=== PATIENT | female | born 2000 | race Two or more races ===

== ENCOUNTER 2024-11-11 11:02 | Emergency (ER) | payer OTHER ==
[~2024-11-11] VITALS: Ht 157.5 cm; Wt 60.8 kg
[2024-11-11 13:21] LABS: HEMATOCRIT 30.1 % (36.0-45.00); HEMOGLOBIN 10.7 g/dL (12.0-15.00); MEAN CELL VOLUME 88.5 fL (80.00-100.00); MEAN CORPUSCULAR HEMOGLOBIN 31.6 pg (27.00-32.0); MEAN CORPUSCULAR HGB CONC 35.7 g/dl (32.0-36.0); PLATELET COUNT 232 K/uL (150-450); RED CELL DISTRIBUTION WIDTH 12.6 % (11.5-14.5)
[2024-11-11 13:47] LABS: URINE APPEARANCE Turbid; URINE BILIRRUBIN Negative (NEGATIVE); URINE BLOOD Negative; URINE COLOR Yellow; URINE GLUCOSE Negative (NEGATIVE); URINE KETONE Negative (NEGATIVE); URINE LEUKOCYTE Negative; URINE NITRATE Negative; URINE PROTEIN Negative (NEGATIVE); URINE UROBILINOGEN 0.2 E.U./dl
[2024-11-11 13:49] LABS: URINE BACTERIA 493.2 uL (0.0-1933); URINE EPITHELIAL CELLS 16.1 uL (0.0-38.8); URINE RBC 4.7 uL (0.0-20.8); URINE WBC 25.7 uL (0.0-23.2)
== END 2024-11-11 16:38 | disposition home or self-care (01) ==
LOC: ER 11:04
PROVIDERS: General Practice
DX: O20.8 Other hemorrhage in early pregnancy (principal); Z3A.09 9 weeks gestation of pregnancy; N93.9 Abnormal uterine and vaginal bleeding, unspecified

== ENCOUNTER 2024-12-02 10:24 | Outpatient (CLI) | payer OTHER | END 2024-12-02 10:26 | disposition home or self-care (01) | LOC: PRENATAL 10:24 | PROVIDERS: ATTEND Obstetrics & Gynecology Maternal & Fetal Medicine | DX: O36.80X0 Pregnancy with inconclusive fetal viability, not applicable or unspecified (principal); Z36.82 Encounter for antenatal screening for nuchal translucency; Z14.8 Genetic carrier of other disease; Z3A.12 12 weeks gestation of pregnancy ==

== ENCOUNTER 2024-12-05 19:01 | Emergency (ER) | payer OTHER ==
[~2024-12-05] VITALS: Ht 154.9 cm; Wt 59.0 kg
== END 2024-12-05 20:21 | disposition home or self-care (01) ==
LOC: ER 19:03
DX: R21 Rash and other nonspecific skin eruption (principal); Z91.038 Other insect allergy status

== ENCOUNTER → 2025-01-25 15:36 | Outpatient (CLI) | payer OTHER | END | disposition home or self-care (01) | LOC: PRENATAL 15:36 | PROVIDERS: ATTEND Obstetrics & Gynecology Maternal & Fetal Medicine | DX: O44.00 Complete placenta previa NOS or without hemorrhage, unspecified trimester (principal); Z3A.20 20 weeks gestation of pregnancy ==

== ENCOUNTER → 2025-03-25 13:26 | Outpatient (CLI) | payer OTHER | END | disposition home or self-care (01) | LOC: PRENATAL 13:26 | PROVIDERS: ATTEND Obstetrics & Gynecology Maternal & Fetal Medicine | DX: O26.849 Uterine size-date discrepancy, unspecified trimester (principal); O36.8199 Decreased fetal movements, unspecified trimester, other fetus; O40.1XX0 Polyhydramnios, first trimester, not applicable or unspecified; Z3A.29 29 weeks gestation of pregnancy ==

== ENCOUNTER 2025-04-01 21:51 | Outpatient (CLI) | payer OTHER ==
[~2025-04-01] VITALS: Ht 154.9 cm; Wt 79.4 kg
[2025-04-01 21:13] VITALS: BP 109/68
[2025-04-01] MEDS ORDERED: RINGERS SOLUTION,LACTATED 1,000 ML IV SCH (22:30)
[2025-04-01 23:05] LABS: BASO % 0.3 % (0.1-1.2); EOS # 0.05 (0.04-0.54); EOS % 0.4 % (0.7-7.0); HEMATOCRIT 30.8 % (34.1-44.9); HEMOGLOBIN 10.9 g/dL (11.2-15.7); LYMPH # 1.41 (1.18-3.74); LYMPH % 12.2 % (19.3-53.1); MEAN CORPUSCULAR HEMOGLOBIN 31.5 pg (25.6-32.2); MONO # 0.64 (0.24-0.82); MONO % 5.5 % (4.7-12.5); NEUT # 9.29 (1.56-6.13); NEUT % 80.2 % (34.0-71.1); PLATELET COUNT 203 K/uL (163-369); RED BLOOD COUNT 3.46 M/uL (3.93-5.22); RED CELL DISTRIBUTION WIDTH 12.4 % (11.6-14.4)
[2025-04-01 23:08] LABS: PH,URINE 7.5 (5.0-8.0); URINE APPEARANCE Cloudy; URINE BILIRRUBIN Negative (NEGATIVE); URINE BLOOD Negative; URINE COLOR Dark Yellow; URINE GLUCOSE Negative (NEGATIVE); URINE KETONE Negative (NEGATIVE); URINE LEUKOCYTE Trace; URINE NITRATE Negative; URINE PROTEIN Negative (NEGATIVE)
[2025-04-01 23:12] LABS: URINE BACTERIA 74.6 uL (0.0-1933); URINE EPITHELIAL CELLS 9.4 uL (0.0-38.8); URINE RBC 42.5 uL (0.0-20.8); URINE WBC 23.5 uL (0.0-23.2)
[2025-04-01 23:13] LABS: URINE CAST 0.14 uL (0.0-1.40)
[2025-04-01 23:30] VITALS: BP 118/67
[2025-04-02 03:30] VITALS: BP 102/62
[2025-04-02 06:31] VITALS: BP 97/65; O2SAT 98
[2025-04-02 10:44] VITALS: BP 97/65
== END 2025-04-02 10:40 | disposition home or self-care (01) ==
LOC: OBS/DEL 21:51
PROVIDERS: ATTEND Obstetrics & Gynecology
DX: O26.893 Other specified pregnancy related conditions, third trimester (principal); O26.849 Uterine size-date discrepancy, unspecified trimester; O36.8199 Decreased fetal movements, unspecified trimester, other fetus; O40.1XX0 Polyhydramnios, first trimester, not applicable or unspecified; Z3A.29 29 weeks gestation of pregnancy

== ENCOUNTER → 2025-05-06 10:23 | Outpatient (CLI) | payer OTHER | END | disposition home or self-care (01) | LOC: PRENATAL 10:23 | PROVIDERS: ATTEND Obstetrics & Gynecology Maternal & Fetal Medicine | DX: O26.849 Uterine size-date discrepancy, unspecified trimester (principal); O36.8199 Decreased fetal movements, unspecified trimester, other fetus; O40.1XX0 Polyhydramnios, first trimester, not applicable or unspecified; Z3A.34 34 weeks gestation of pregnancy ==

== ENCOUNTER 2025-06-14 05:21 | Inpatient (IN) | payer OTHER ==
[~2025-06-14] VITALS: Ht 154.9 cm; Wt 2.7 kg
[2025-06-14 05:28] VITALS: BP 117/70
[2025-06-14] MEDS ORDERED: AMPICILLIN SODIUM 2,000 MG VIAL IV ONE ×2 (05:30→17:30)
[2025-06-14 07:10] LABS: BASO % 0.3 % (0.1-1.2); EOS # 0.05 (0.04-0.54); EOS % 0.5 % (0.7-7.0); LYMPH # 1.44 (1.18-3.74); LYMPH % 15.2 % (19.3-53.1); MEAN PLATELET VOLUME 12.90 fl (9.4-12.4); MONO # 0.60 (0.24-0.82); MONO % 6.3 % (4.7-12.5); NEUT # 7.24 (1.56-6.13); NEUT % 76.6 % (34.0-71.1); RED CELL DISTRIBUTION WIDTH 12.6 % (11.6-14.4)
[2025-06-14 07:21] VITALS: BP 118/70
[2025-06-14 07:30] LABS: URINE APPEARANCE Clear; URINE BILIRRUBIN Negative (NEGATIVE); URINE BLOOD Large; URINE COLOR Orange; URINE GLUCOSE Negative (NEGATIVE); URINE KETONE Negative (NEGATIVE); URINE LEUKOCYTE Trace; URINE NITRATE Negative; URINE PROTEIN 30 (NEGATIVE); URINE UROBILINOGEN 1.0 E.U./dl
[2025-06-14 07:35] LABS: URINE BACTERIA 241.1 uL (0.0-1933); URINE EPITHELIAL CELLS 18.5 uL (0.0-38.8); URINE RBC 4611.7 uL (0.0-20.8); URINE WBC 37.2 uL (0.0-23.2)
[2025-06-14 07:44] LABS: INR 0.94
[2025-06-14 07:47] LABS: URINE CAST 0.29 uL (0.0-1.40)
[2025-06-14] MEDS ORDERED: MISOPROSTOL 25 MCG/4 ML GEL.W.APPL VAG ONE (08:00)
[2025-06-14 08:58] LABS: BUN CREA RATIO 18.0 (7.0-25.0); CREATININE SERUM 0.4 mg/dL (0.55-1.02); GFR 196.1; GLUCOSE FASTING 72.0 mg/dL (65-100)
[2025-06-14 08:59] LABS: ALT/SGPT 13.0 U/L (12-78); AST/SGOT 13.0 U/L (15-37); BILIRUBIN TOTAL 0.66 mg/dL (0.3-1.2); GLOBULINA 3.1 G/DL (2.4-3.5); OSMOLALITY SERUM 274.0 MOSM/KG (275-295)
[2025-06-14] MEDS ORDERED: AMPICILLIN SODIUM 1,000 MG VIAL IV SCH (09:00)
[2025-06-14 11:46] VITALS: BP 117/67
[2025-06-14 15:07] VITALS: BP 110/57
[2025-06-14] MEDS ORDERED: NIFEDIPINE 30 MG TAB.SA.OSM PO SCH (17:29)
[2025-06-14] MEDS ORDERED: RINGERS SOLUTION,LACTATED 1,000 ML IV SCH (17:30)
[2025-06-14] MEDS ORDERED: MISOPROSTOL 25 MCG/4 ML GEL.W.APPL VAG STA (17:40)
[2025-06-14 18:53] VITALS: BP 123/73
[2025-06-14 23:36] VITALS: BP 109/66
[2025-06-15 03:37] VITALS: BP 116/64
[2025-06-15 07:26] VITALS: BP 113/66
[2025-06-15] MEDS ORDERED: BETAMETHASONE ACETATE,SOD PHOS 30 MG/5 ML ML IM SCH (09:00)
[2025-06-15 11:55] VITALS: BP 127/76
[2025-06-15 15:06] VITALS: BP 132/77; O2SAT 100
[2025-06-15] MEDS ORDERED: OXYTOCIN 500 ML IV SCH (17:30)
[2025-06-15 19:58] VITALS: BP 114/73
[2025-06-15 23:18] VITALS: BP 115/58; O2SAT 100
[2025-06-16] VITALS (7 sets, daily range): BP systolic 128–140; BP diastolic 63–84; O2SAT 100
[2025-06-16] MEDS ORDERED: MORPHINE SULFATE 4 MG/ML VIAL IV ONE ×3 (10:15→23:20)
[2025-06-16] MEDS ORDERED: TERBUTALINE SULFATE 1 MG/ML AMPUL SUBCUTANEO ONE (15:00)
[2025-06-16] MEDS ORDERED: MORPHINE SULFATE 4 MG/ML CARTRIDGE IV STA (18:27)
[2025-06-16] MEDS ORDERED: MORPHINE SULFATE 4 MG/ML CARTRIDGE IV PRN (21:45)
[2025-06-16] MEDS ORDERED: OXYTOCIN 1,000 ML IV SCH (22:30)
[2025-06-16] MEDS ORDERED: RINGERS SOLUTION,LACTATED 1,000 ML IV SCH (22:30)
[2025-06-16] MEDS ORDERED: OXYTOCIN 20 UNITS/500ML RL PIGGYBAG IV ONE (23:15)
[2025-06-16] MEDS ORDERED: ERYTHROMYCIN BASE OPHT 1GM EACH TUBE OP ONE (23:15)
[2025-06-17 01:05] VITALS: BP 120/68
[2025-06-17 01:13] LABS: BASO % 0.1 % (0.1-1.2); EOS # 0.00 (0.04-0.54); EOS % 0.0 % (0.7-7.0); LYMPH # 0.61 (1.18-3.74); LYMPH % 3.3 % (19.3-53.1); MEAN PLATELET VOLUME 12.50 fl (9.4-12.4); MONO # 0.90 (0.24-0.82); MONO % 4.9 % (4.7-12.5); NEUT # 16.78 (1.56-6.13); NEUT % 90.9 % (34.0-71.1); RED CELL DISTRIBUTION WIDTH 12.4 % (11.6-14.4)
[2025-06-17 08:30] VITALS: BP 119/71
[2025-06-17] MEDS ORDERED: SIMETHICONE 125 MG CAPSULE PO SCH (09:00)
[2025-06-17] MEDS ORDERED: DOCUSATE SODIUM 100MG CAP PO SCH (09:00)
[2025-06-17 16:00] VITALS: BP 127/73
[2025-06-17 20:00] VITALS: BP 118/72
[2025-06-18 02:13] VITALS: BP 109/66
[2025-06-18 08:36] VITALS: BP 118/74
[2025-06-18 13:01] VITALS: BP 123/75
[2025-06-18 16:00] VITALS: BP 115/72
[2025-06-19 00:56] VITALS: BP 110/72
[2025-06-19 08:39] VITALS: BP 120/76
== END 2025-06-19 14:00 | disposition home or self-care (01) | DRG 788 ==
LOC: LDR 05:21 → O/R 11:56 → LDR 11:57 → O/R 06-16 20:03 → OB/GYN 06-16 22:33
PROVIDERS: ADMIT Obstetrics & Gynecology; ATTEND Obstetrics & Gynecology
PROC: 3E0P7VZ Introduction of Hormone into Female Reproductive, Via Natural or Artificial Opening (ICD-10-PCS; 2025-06-14)
PROC: 4A1HXCZ Monitoring of Products of Conception, Cardiac Rate, External Approach (ICD-10-PCS; 2025-06-14)
PROC: 3E033VJ Introduction of Other Hormone into Peripheral Vein, Percutaneous Approach (ICD-10-PCS; 2025-06-16)
PROC: 10D00Z1 Extraction of Products of Conception, Low, Open Approach (ICD-10-PCS; principal; 2025-06-16 20:45)
DX: O61.0 Failed medical induction of labor (principal); O62.1 Secondary uterine inertia; O99.824 Streptococcus B carrier state complicating childbirth; Z3A.40 40 weeks gestation of pregnancy; Z37.0 Single live birth

== ENCOUNTER 2025-09-07 17:57 | Emergency (ER) | payer OTHER ==
[~2025-09-07] VITALS: Ht 154.9 cm; Wt 72.6 kg
[2025-09-07] MEDS ORDERED: ONDANSETRON HCL 2 MG/ML VIAL IV ONE (18:30)
[2025-09-07] MEDS ORDERED: ONDANSETRON HCL 2 MG/ML VIAL ONE (18:49)
[2025-09-07 19:15] LABS: BASO % 0.4 % (0.1-1.2); EOS # 0.01 (0.04-0.54); EOS % 0.2 % (0.7-7.0); LYMPH # 0.28 (1.18-3.74); LYMPH % 5.0 % (19.3-53.1); MEAN PLATELET VOLUME 11.70 fl (9.4-12.4); MONO # 0.47 (0.24-0.82); MONO % 8.5 % (4.7-12.5); NEUT # 4.77 (1.56-6.13); NEUT % 85.7 % (34.0-71.1); RED CELL DISTRIBUTION WIDTH 12.5 % (11.6-14.4)
[2025-09-07 19:16] LABS: URINE APPEARANCE Clear; URINE BILIRRUBIN Negative (NEGATIVE); URINE BLOOD Small; URINE COLOR Dark Yellow; URINE GLUCOSE Negative (NEGATIVE); URINE LEUKOCYTE Trace; URINE NITRATE Negative; URINE PROTEIN Trace (NEGATIVE); URINE UROBILINOGEN 1.0 E.U./dl
[2025-09-07 19:19] LABS: URINE BACTERIA 281.9 uL (0.0-1933); URINE EPITHELIAL CELLS 31.2 uL (0.0-38.8); URINE RBC 40.0 uL (0.0-20.8); URINE WBC 21.5 uL (0.0-23.2)
[2025-09-07 19:31] LABS: COVID-19 AG NEGATIVE (NEGATIVE)
[2025-09-07 19:46] LABS: ALT/SGPT 17.0 U/L (12-78); AST/SGOT 10.0 U/L (15-37); BILIRUBIN TOTAL 0.84 mg/dL (0.3-1.2); BUN CREA RATIO 9.0 (7.0-25.0); CREATININE SERUM 0.78 mg/dL (0.55-1.02); GFR 90.73; GLOBULINA 3.8 G/DL (2.4-3.5); GLUCOSE FASTING 130.0 mg/dL (65-100); OSMOLALITY SERUM 279.0 MOSM/KG (275-295)
[2025-09-07 20:30] LABS: URINE CAST 0.14 uL (0.0-1.40); URINE KETONE 80 (NEGATIVE)
[2025-09-07] MEDS ORDERED: TUSSIN DM 200-118 ML PO (20:44)
[2025-09-07] MEDS ORDERED: PEPCID AC20 MG PO (20:44)
[2025-09-07] MEDS ORDERED: OSEL75CA PO (20:44)
[2025-09-07] MEDS ORDERED: ONDANSETRON ODT4 MG PO (20:44)
== END 2025-09-07 21:28 ==
LOC: ER 17:57
PROVIDERS: General Practice
DX: J10.1 Influenza due to other identified influenza virus with other respiratory manifestations (principal); Z20.822 Contact with and (suspected) exposure to COVID-19